=== PATIENT | male | born 1965 | race Caucasian/White ===

== ENCOUNTER 2022-05-07 06:47 | Observation (INO) ==
--- NOTE | 2022-04-14 11:12 | PAT Medication Instructions ---
Medication Instructions Date of Service April 14, 2022 Home Medications aspirin 81 mg tablet,delayed release 81 mg PO QAM fluticasone 250 mcg-salmeterol 50 mcg/dose blistr powdr for inhalation (Advair Diskus) 2 inh inhalation BID omeprazole 40 mg capsule,delayed release 40 mg PO QAM glucosamine sulfate 500 mg tablet (Glucosamine) 500 mg PO BID lisinopril 20 mg-hydrochlorothiazide 25 mg tablet 1 tab PO QAM STOP taking 2 weeks before surgery (or as soon as possible if surgery is within 2 weeks) glucosamine sulfate 500 mg tablet (Glucosamine) 500 mg PO BID DO NOT take the morning of surgery lisinopril 20 mg-hydrochlorothiazide 25 mg tablet 1 tab PO QAM Take morning of surgery With a small sip of water, OTHERWISE NOTHING TO EAT OR DRINK AFTER MIDNIGHT: aspirin 81 mg tablet,delayed release 81 mg PO QAM (continue as normal unless told otherwise by surgeon) fluticasone 250 mcg-salmeterol 50 mcg/dose blistr powdr for inhalation (Advair Diskus) 2 inh inhalation BID omeprazole 40 mg capsule,delayed release 40 mg PO QAM Take evening before surgery fluticasone 250 mcg-salmeterol 50 mcg/dose blistr powdr for inhalation (Advair Diskus) 2 inh inhalation BID Other Notes If you have any questions please call us at [phone] or [phone] or [phone] or [phone]
--- NOTE | 2022-04-18 11:29 | Anesthesiology Consultation ---
Date of Service April 18, 2022 Assessment & Plan (1) Encounter for pre-operative examination: - COVID screening: Per assessment on 04/18: No known COVID-19 positive contacts or current COVID-19 related symptoms. Travel screen negative. Patient vaccinated. At surgeon discretion if preop Covid testing being done. - Outpatient joint assessment: Pt currently scheduled for inpatient pathway. If surgeon requests review for outpatient joint pathway, patient is not recommended candidate for outpatient joint program from anesthesia standpoint. Chart Review Chart Review: Acceptable Risk for Surgery and Patient seen in Pre Admission Testing Teaching & Discussion Pre-Anesthesia Teaching/Discussion Notes: Instructed NPO after midnight before surgery,except medications with 15 cc of water. Medication instructions provided according to the PAT guidelines. History Surgery Operation Date: 05/07/22 09:20 Proposed Procedures p Left Total Knee Arthroplasty - Alex Barragan DO Height/Weight Height: 6 ft 1 in Weight: 137.8 kg Allergies Allergy/AdvReac Type Severity Reaction Status Date / Time No Known Allergies Allergy Unverified 04/11/22 16:05 Medications Home Medications Medication Instructions Recorded Confirmed Last Taken aspirin 81 mg tablet,delayed 81 mg PO QAM 02/25/20 04/11/22 02/25/20 release fluticasone 250 mcg-salmeterol 50 2 inh inhalation BID 02/25/20 04/11/22 02/25/20 mcg/dose blistr powdr for inhalation (Advair Diskus) omeprazole 40 mg capsule,delayed 40 mg PO QAM 02/25/20 04/11/22 02/25/20 release glucosamine sulfate 500 mg tablet 500 mg PO BID 04/11/22 04/11/22 Unknown (Glucosamine) lisinopril 20 1 tab PO QAM 04/11/22 04/11/22 Unknown mg-hydrochlorothiazide 25 mg tablet Past Medical History Medical History Asthma Stable GERD (gastroesophageal reflux disease) HTN (hypertension) Morbid obesity Osteoarthritis Sleep apnea Unable to tolerate CPAP Exercise / Class Metabolic Activity II 4-5 Yardwork/Stairs/Walk up hill (one FS (no CP, no SOB)) Past Family History Family History Other No family history of adverse response to anesthesia Past Surgical History Surgical History History of arthroscopy of right knee History of colonoscopy History of hand surgery Right finger surgery x 2 History of removal of cyst Left arm History of surgery Splenic repair (r/t )injury from fall Past Anesthesia History No Hx of Anesthesia Complications and No Family Hx of Anesthesia Complications History of PONV No Hx of PONV and Hx of Motion Sickness Social History Smoking Status: Former smoker Do You Dip or Chew Tobacco: No Smoking End Date: Quit many years ago Hx Alcohol Use: No Hx Substance Use: No substance use type: does not use Review of Systems Patient denies chest pain, shortness of breath, dyspnea on exertion, fever, chills, cough, wheezing, palpitations. Physical Exam Vital Signs VITALS BP 139/87 P 74 TEMP 98.3 SP02 95%RA RESP 18 PHYSICAL Full cervical extension range of motion. Full TMJ range of motion. TMD 4finger breaths Mallampati Score 3 Dentition: left upper side missing tooth, right lower side chipped tooth Lungs: clear throughout to auscultation Cardiac: regular rate and rhythm, no murmurs noted Spine: normal Carotid arteries: negative bruit Extremities: no edema Lab Results Anesthesia Preop Results Results Anesthesia Widget: WBC 9.43 K/ul (4.8-10.8) 04/18/22 Hgb 15.6 g/dl (14.0-18.0) 04/18/22 Hct 45.4 % (40.1-51.0) 04/18/22 Plt 264 K/uL (130-400) 04/18/22 Na 136 mmol/L (136-145) 04/18/22 K 4.2 mmol/L (3.5-5.1) 04/18/22 Cl 103 mmol/L (98-107) 04/18/22 CO2 27 mmol/L (21-32) 04/18/22 BUN 30 mg/dl (6-23) H 04/18/22 Creat 1.03 mg/dl (0.6-1.4) 04/18/22 Glucose Level 113 mg/dl (70-99(Fasting)) H 04/18/22 PT 10.3 Seconds (9.0-12.0) 04/18/22 PTT 26.1 Seconds (21.0-31.0) 04/18/22 INR 1.0 (0.9-1.1) 04/18/22 HA1c 5.8 % (4.5-5.6) H 04/18/22 Urine Color Yellow 04/18/22 Urine Appearance Clear (Clear) 04/18/22 Urine pH 6.5 (4.5-7.5) 04/18/22 Urine Specific Bow 1.022 (1.000-1.030) 04/18/22 Urine Protein Negative (Negative) 04/18/22 Urine Glucose (UA) Negative (Negative) 04/18/22 Urine Ketones Negative (Negative) 04/18/22 Urine Blood Negative (Negative) 04/18/22 Urine Nitrite Negative (Negative) 04/18/22 Urine Bilirubin Negative (Negative) 04/18/22 Urine Urobilinogen Negative (Negative) 04/18/22 Urine Leukocyte Esterase Negative (Negative) 04/18/22 Blood Type A Positive 04/18/22 Antibody Screen NEGATIVE 04/18/22 Testing Electrocardiogram Date: 04/18/22 Findings: + NSR @ (74) Chest X-Ray Date: 04/18/22 FINDINGS: PA and lateral chest radiographs are compared to chest x-ray and chest CT dated 02/25/2020. The cardiomediastinal silhouette is top normal for projection. The lungs and pleural spaces are clear noting mild bibasilar atelectasis. There is no pneumothorax. The bony thorax appears intact. IMPRESSION: No active disease in the chest. COVID-19 Risk Screen Screening Information COVID-19 Screen Date: 04/18/22 Exposure 21 Days Family/Household +COVID Last 21 Days: No Exposure 10 Days Any COVID Exposure Last 10 Days: No Symptoms Last 10 Days Experienced COVID Sx Last 10 Days: No + COVID 0-90 Days COVID + in Last 0-90 Days: No
--- NOTE | 2022-04-18 15:08 | History & Physical Report ---
Date of Service April 18, 2022 date of surgery: 05/07/22 Procedure: Left Total Knee Arthroplasty Surgeon: Alex Barragan Assessment & Plan (1) Arthritis of knee, left: Plan: Risk and benefits of the procedure discussed in detail with patient, he would like to proceed with left total knee replacement. Plan on overnight stay at the hospital will discharge home with home health physical therapy. Placed on aspirin 81 mg twice a day for 1 month postop. We will follow-up in the office 2 weeks postoperatively sooner if he is having any problems. We will need medical clearance prior to the surgery. He otherwise has no other questions or concerns The risks and benefits have been discussed including, but not limited to, risk of infection, nerve injury, stiffness, loss of motion, failure to improve, etc. Reasonable outcomes and options of treatment were discussed. An explanation of appropriate alternatives to the procedure that may be advantageous were discussed and their risks and benefits, as well as the risks and benefits of not proceeding with treatment. I offered to answer any additional inquiries concerning the treatment involved. All the patient's questions were answered. The patient is agreeable, understanding of the treatment plan and alternatives, and wishes to proceed with the treatment plan. History of Present Illness Chief Complaint: left knee pain Primary Care Provider: Emiliana Massey DO Mr. Owens is a pleasant 56-year-old male who presents today for preop evaluation prior to his left total knee replacement. He states that he has been having pain in his knee for many years now which is gradually worsened and is now affecting his daily activities including walking standing using stairs. He is tried oral anti-inflammatories and Tylenol without relief, he states he has undergone previous corticosteroid and viscosupplementation injections without any relief. He denies any previous surgeries. He rates his current pain as a 7 out of 10. At this point time is failed conservative measures and would like to proceed with a left total knee replacement Allergies Allergy/AdvReac Type Severity Reaction Status Date / Time No Known Allergies Allergy Unverified 04/11/22 16:05 Home Medications Medication Instructions Recorded Confirmed Type aspirin 81 mg tablet,delayed 81 mg PO QAM 02/25/20 04/11/22 History release fluticasone 250 mcg-salmeterol 50 2 inh inhalation BID 02/25/20 04/11/22 History mcg/dose blistr powdr for inhalation (Advair Diskus) omeprazole 40 mg capsule,delayed 40 mg PO QAM 02/25/20 04/11/22 History release glucosamine sulfate 500 mg tablet 500 mg PO BID 04/11/22 04/11/22 History (Glucosamine) lisinopril 20 1 tab PO QAM 04/11/22 04/11/22 History mg-hydrochlorothiazide 25 mg tablet Past Med/Surg History Medical History Asthma Stable GERD (gastroesophageal reflux disease) HTN (hypertension) Morbid obesity Osteoarthritis Sleep apnea Unable to tolerate CPAP Surgical History History of arthroscopy of right knee History of colonoscopy History of hand surgery Right finger surgery x 2 History of removal of cyst Left arm History of surgery Splenic repair (r/t )injury from fall Family History Other No family history of adverse response to anesthesia Social History Smoking Status: Former smoker Second Hand Exposure: No; Hx Alcohol Use: No Hx Substance Use: No Preferred Language: Ukrainian Communication Ability: Effective Mill Feeder Required: No Beliefs That Will Affect Care: None Current Living Situation: Spouse Feels Safe at Home: Yes Assistive Devices: None Review of Systems Review of Systems: All systems reviewed & are unremarkable except as noted in HPI & below Constitutional: no fever, no chills and no sweats Respiratory: no cough and no dyspnea Cardiovascular: no chest pain, no dyspnea and no orthopnea Gastrointestinal: no abdominal pain, no nausea and no vomiting Musculoskeletal: as per Subjective / HPI Physical Exam Physical Exam: HT: 6ft 1in WT: 137.8kg Constitutional: WD/WN, vitals as above no acute distress Respiratory: normal respiratory effort, lungs clear to auscultation no respiratory distress, no labored breathing and does not use accessory muscles Cardiovascular: RRR, no murmur, no edema Gastrointestinal (Abdomen): normal bowel sounds, soft, nontender, no hepatosplenomegaly Musculoskeletal: Knee: + knee abnormal to inspection (LEFT KNEE), + effusion (+1 effusion), + limited ROM of knee (ROM 0/3/110), + knee ROM with crepitation, + joint line tenderness (medial joint line) and + Aquilino's sign positive; no deformity, no skin erythema, no ecchymosis, no valgus laxity, no varus laxity, anterior drawer test negative, Sapphire's sign negative and pivot shift test negative Results & Data Results & Data ([facility]) Diagnostic Findings Left Knee X-ray: left knee series confirm advanced degenerative changes to the left knee, greatest medial compartments and patellofemoral joint, showing joint space narrowing, osteophyte formation and subchondral sclerosis. no acute bony pathology noted.
[~2022-05-07 06:47] MED LIST: ACETAMINOPHEN 500 MG TAB PO SCH; BUPIVACAINE 0.25% 30 ML VIAL ONE; BUPIVACAINE 0.5 % 5 MG/1 ML PF 10ML VIAL ONE; CeleBREX 200 MG CAP PO SCH; FAMOTIDINE 20 MG TAB PO SCH; GABAPENTIN 600 MG DOSE PO SCH; LR 500ML BOLUS, THEN 15ML/HR IV SCH; METOCLOPRAMIDE HCL 10 MG TABLET PO SCH; ROPIVACAINE 0.5% HCL/PF 150 MG, BUPIVACAINE 0.75% MPF 20 ML, EPINEPHrine 30MG/30ML (OR ... INSTIL SCH; TRANEXAMIC ACID 1,000 MG **IV Intra-op IV SCH; TRANEXAMIC ACID 1,000 MG **IV Pre-op IV SCH; dexAMETHasone 4 MG TAB PO SCH
[2022-05-07] MEDS ORDERED: LIDOCAINE 2% 20 MG/ML 5 ML SYR IV ONE (07:36)
[2022-05-07] MEDS ORDERED: MIDAZOLAM HCL 1 MG/ML 2ML VIAL ONE (07:36)
[2022-05-07] MEDS ORDERED: PROPOFOL IV EMULSION 10 MG/ML 20 ML VIAL IV ONE (07:36)
--- NOTE | 2022-05-07 08:35 | History & Physical Bridge Note ---
Date of Service May 07, 2022 History & Physical Bridge Note I have examined the patient, reviewed the History & Physical and in the interval since the performance of the History & Physical I have noted the following changes of clinical significance: no changes noted
[2022-05-07] MEDS ORDERED: ATROPINE SULFATE 0.1 MG/ML 10ML SYR IV PRN (08:41)
[2022-05-07] MEDS ORDERED: ONDANSETRON INJ 2 MG/ML 2 ML VIAL IV PRN ×2 (08:41→12:43)
[2022-05-07] MEDS ORDERED: fentaNYL citrate 100 MCG/2 ML VIAL IV PRN (08:41)
[2022-05-07] MEDS ORDERED: ePHEDrine sulfate 50 MG/ML AMP IV PRN (08:41)
[2022-05-07] MEDS ORDERED: ORTHO JOINT ANESTHETIC ONE (09:12)
[2022-05-07] MEDS ORDERED: ONDANSETRON INJ 2 MG/ML 2 ML VIAL ONE (10:55)
--- NOTE | 2022-05-07 11:17 | Operative Report ---
Post Operative Report Pre & Post Diagnosis Operation Date: 05/07/22 09:20 Pre-Op Diagnosis: Osteoarthritis Left knee Post-Op Diagnosis: Osteoarthritis Left knee I identified the patient and participated in the time-out.: Yes Procedure Operation Date: 05/07/22 09:20 Actual Procedures p Left Total Knee Arthroplasty(Left) - Alex Barragan DO Surgeon Alex Barragan DO Estimated Blood Loss 5 I attest to the content of the Intraoperative Record and any orders documented therein. Any exceptions are noted below.
--- NOTE | 2022-05-07 11:19 | Operative Report ---
Post Operative Report Pre & Post Diagnosis Operation Date: 05/07/22 09:20 Pre-Op Diagnosis: Osteoarthritis Left knee Post-Op Diagnosis: Osteoarthritis Left knee I identified the patient and participated in the time-out.: Yes Procedure Operation Date: 05/07/22 09:20 Actual Procedures p Left Total Knee Arthroplasty(Left) utilizing Cruz [employer] Nephew journey 2 patient Max total knee arthroplasty size femur 8 tibia 8 Poly 12 patella 32 heath- Alex Barragan DO Surgeon Alex Barragan DO Litigation Assistant CRISPIN Mark Estimated Blood Loss 5 Findings Consistent with Post-Op Diagnosis Patient presents with severe end-stage DJD of the left knee with severe medial compartment chondrosis patellofemoral chondrosis eburnated [id number] marginal osteophytes subchondral sclerosis and cystic changes with a large effusion Specimens Bone and cartilage Drains Medium bore Hemovac Anesthesia Type MAC Spinal Regional Complications none Disposition Accompanied Patient To Recovery: No Disposition: Recovery Room Indications Patient presents with severe end-stage DJD left knee nonresponse to conservative management getting physical therapy anti-inflammatories relative rest activity modification corticosteroid injection viscosupplementation the above intraoperative findings were noted Description of Procedure After proper prepping and draping of the left lower extremity anterior midline incision was made over the region of the extensor extensor mechanism after meticulous hemostasis was obtained and maintained in subcutaneous tissues a medial parapatellar incision was made The patella was subluxed lateralward the medial lateral gutter were cleaned from any hypertrophic synovitis and scar tissue of the distal femoral block was placed and the distal femoral osteotomy cut was made subsequently the chamfers anterior and posterior osteotomy cuts were made utilizing the 4-in-1 block the tibia was subsequently subluxed anteriorward medial and ateral meniscal remnants were excised in their entirety remnants of the anterior and posterior cruciate ligaments were excised in their entirety excellent exposure of the proximal tibia was obtained the tibial osteotomy guide was placed on the proximal tibial osteotomy cut was made once again the knee was irrigated with copious amounts of sterile saline solution the patella was subsequently everted lateralward thickened scar tissue around the patella was removed the patella was subsequently cut utilizing a freehand techni que and was drilled prepared for final preparation and placement of patella socially flexion-extension gaps were checked and the equal and symmetric trials were placed to the appropriate femoral and tibial trials with poly-spacer being placed for equal flexion and extension gaps and full range of motion including extension to 0 and flexion to 140 the trial components after having been taken to recovery range of motion was subsequently removed meticulous hemostasis was obtained and maintained subsequently a knee block injection of joint cocktail including ropivacaine 0.5% 150 mg. Bupivacaine 0.5% epinephrine 1-200,030 mL's toradol 30 mg dexamethasone 4 mg ketamine 10 mg clonidine 100 micrograms normal saline solution 30 mg was infiltrated into the soft tissues of the posterior knee medial lateral gutters and periosteal synovium special attention was paid to protect neurovascular structures at all times subsequently trial components having been removed the knee was irrigated with sterile saline solution. debris was removed the proximal tibia was subsequently prepared and was made ready for the placement of the tibial component tibial component was also cemented and tamped into position the femoral component was subsequently placed and cemented in the position the patellar component was subsequently cemented in position because hemostasis once again obtained and maintained wound having been thoroughly irrigated with debridement and debridement lavage was performed as well as a medial parapatellar incision closed with #1 Vicryl in interrupted fashion subcutaneous was closed with #2 Vicryl skin was closed with skin clips. PA-C was necessary for prepping and drapping as well as wound closure of deep fascia Sub cutaneous tissue and skin and was necessary for the case. A sterile compressive dressing was placed patient was taken to recovery in stable condition of report dictated by Yung I attest to the content of the Intraoperative Record and any orders documented therein. Any exceptions are noted below.Due to the complex nature of the procedure, the entire surgery was performed with the operational assistance of CRISPIN Mark. The fish hatchery assistant, under direct supervision, was involved in the actual performance of all aspects of the surgical procedure including hemostasis, tissue retraction and incision, instrument management, patient positioning, and wound closure. I attest to the content of the Intraoperative Record and any orders documented therein. Any exceptions are noted below.
--- NOTE | 2022-05-07 12:20 | XRay Report ---
LEFT KNEE 2 VIEWS History: Left total knee arthroplasty. Degenerative arthritis. Postop. FINDINGS: The patient is status post a left total knee arthroplasty. The hardware is intact. No fract ure or dislocation. Surgical drains are in place. IMPRESSION: Left total knee arthroplasty. No evidence for hardware complication. ACT 112: Negative or not required by law. Electronically signed by: Dionte Last M.D. 05/07/2022 12:18 PM
[2022-05-07] MEDS ORDERED: METOCLOPRAMIDE HCL INJ 5 MG/ML 2 ML VIAL IV PRN (12:43)
[2022-05-07] MEDS ORDERED: oxyCODONE HCL IR 5 MG TAB (IMMEDIATE RELEASE) PO PRN (12:43)
[2022-05-07] MEDS ORDERED: NALOXONE HCL 0.4 MG/1 ML VIAL/CARP IV PRN (12:43)
[2022-05-07] MEDS ORDERED: HYDROmorphone INJ 1 MG/ML SYRINGE IV PRN (12:43)
[2022-05-07] MEDS ORDERED: MAGNESIUM HYDROXIDE SUSP 30 ML UDC PO PRN (12:43)
[2022-05-07] MEDS ORDERED: diphenhydrAMINE Capsule 25 MG CAP PO PRN (12:43)
[2022-05-07] MEDS ORDERED: SODIUM CHLORIDE 0.9% 1000ML 1,000 ML IV SCH (12:43)
[2022-05-07] MEDS ORDERED: bisacodyL 10 MG SUPP PR PRN (12:43)
[2022-05-07] MEDS: ACETAMINOPHEN 500 MG TAB PO SCH ×2 (14:22→21:14)
[2022-05-07] MEDS: KETOROLAC 30 MG/ML VIAL IV SCH ×3 (15:32→19:58)
--- NOTE | 2022-05-07 16:58 | Anesthesiology Progress Note ---
Date of Service May 07, 2022 Anesthesia Post Procedure Vital Signs Vital Signs: Temp Pulse Pulse Resp BP BP Pulse Ox 05/07/22 15:27 36.5 C 72 17 122/78 96 05/07/22 14:09 36.5 C 69 17 124/79 95 05/07/22 13:30 36.4 C L 86 20 123/73 94 05/07/22 13:10 83 20 127/73 95 05/07/22 12:55 82 18 118/82 95 05/07/22 12:40 80 14 127/78 95 05/07/22 12:30 36.3 C L 74 16 115/74 95 05/07/22 12:20 82 20 113/85 95 05/07/22 12:10 75 14 128/66 96 05/07/22 12:00 74 15 114/68 99 05/07/22 11:52 36.2 C L 86 18 122/54 L 99 05/07/22 07:25 36.8 C 71 18 162/86 H 98 O2 Del Method O2 Flow Rate 05/07/22 15:27 Room Air 05/07/22 14:09 Room Air 05/07/22 13:30 Room Air 05/07/22 13:10 Room Air 05/07/22 12:55 Room Air 05/07/22 12:40 Room Air 05/07/22 12:30 Room Air 05/07/22 12:20 Room Air 05/07/22 12:10 Room Air 05/07/22 12:00 Oxymask 4 05/07/22 11:52 Oxymask 6 05/07/22 07:25 Room Air Transfer of Care Handoff Completed per policy Notes Mental Status: alert / awake / arousable and participated in evaluation Patient Amnestic to Procedure: Yes Nausea / Vomiting: adequately controlled Pain: adequately controlled Airway Patency, RR, SpO2: stable & adequate BP & HR: stable & adequate Hydration State: stable & adequate Neuraxial Anesthesia: was administered and sensory block is resolving Anesthetic Complications: no major complications apparent and Pt Satisfied with anesthetic care
[2022-05-07] MEDS: ceFAZolin 2000MG 2,000 MG/15 ML SYR IV SCH (18:42)
[2022-05-07] MEDS ORDERED: SENNA 8.6 MG TAB PO SCH (21:00)
[2022-05-07] MEDS: DOCUSATE SODIUM 100 MG CAP PO SCH (21:14)
[2022-05-07] MEDS: ASPIRIN 81 MG ECTAB PO SCH (21:14)
[2022-05-08] MEDS: KETOROLAC 30 MG/ML VIAL IV SCH ×2 (01:26→05:40)
[2022-05-08] MEDS: ceFAZolin 2000MG 2,000 MG/15 ML SYR IV SCH (01:26)
[2022-05-08] MEDS: ACETAMINOPHEN 500 MG TAB PO SCH ×2 (05:40→11:57)
[2022-05-08 06:47] LABS: Hematocrit (blood only) 38.7 % (42.0-52.0); Hemoglobin 13.5 g/dl (14.0-18.0); Mean Corpuscular Hemoglobin 31.3 pg (25.0-34.0); Mean Corpuscular Hgb Conc 34.9 g/dL (32.0-36.0); Mean Corpuscular Volume 89.8 fL (80.0-100.0); Mean Platelet Volume 9.3 fL (9.4-12.4); Platelet Count 238 K/uL (130-400); RDW Coefficient of Variation 11.4 % (11.5-14.5); RDW Standard Deviation 37.5 fL (36.4-46.3); Red Blood Count 4.31 M/uL (4.70-6.10); White Blood Count 17.24 K/ul (4.8-10.8)
--- NOTE | 2022-05-08 08:01 | Orthopedic Progress Note ---
Date of Service May 08, 2022 Assessment & Plan (1) Arthritis of knee, left: Plan: Postop day 1 status post left total knee arthroplasty. PT/OT protocols. Weightbearing as tolerated. DVT prophylaxis-aspirin p.o. twice daily, JOSEPH Negron. Pain management is written. Labs pending. Discharge planning patient is planning for outpatient PT upon discharge. Plan for possible discharge today pending progression with physical therapy and pain control. Admission and Anticipated Discharge Date Admission Date: May 07, 2022 Subjective POD 1 Patient lying in bed awake and alert. Patient did not sleep well last night but states pain was controlled. No other complaints at this time. Physical Exam Physical Exam: Dressings are clean, dry, and intact. Hemovac drain was removed earlier this morning. Calves are soft nontender. Neurovascular intact. Toes are mobile. He has been dorsiflexion and plantarflexion of the left foot. Results & Data ([facility]) Vital Signs (Past 12 Hours) Vital Signs Temp Pulse Resp BP Pulse Ox O2 Del Method 05/08/22 07:55 36.7 C 57 L 17 135/77 98 Room Air 05/08/22 03:11 37 C 61 18 116/69 96 Room Air 05/07/22 22:22 36.7 C 65 20 115/71 97 Room Air
[2022-05-08 08:14] LABS: Calcium 8.4 mg/dl (8.5-10.1); Creatinine Clr Calc Pharmacy 120.2 ml/min; Est GFR (African American) 97.1 ml/min; Est GFR (Non-African American) 83.8 ml/min
[2022-05-08] MEDS ORDERED: MULTIVITAMIN TAB PO SCH (09:00)
[2022-05-08] MEDS ORDERED: FLUTICASONE/VILANTEROL 200/25MCG 14 PUFFS/INHALER INH SCH (09:00)
[2022-05-08] MEDS ORDERED: LISINOPRIL/HCTZ 20/25MG 1 TAB PO SCH (09:00)
[2022-05-08] MEDS ORDERED: CeleBREX 200 MG CAP PO SCH (09:00)
[2022-05-08] MEDS ORDERED: ATORVASTATIN 20 MG TAB PO SCH (09:00)
[2022-05-08] MEDS: ASPIRIN 81 MG ECTAB PO SCH (09:45)
[2022-05-08] MEDS: DOCUSATE SODIUM 100 MG CAP PO SCH (09:52)
--- NOTE | 2022-05-08 15:16 | Discharge Summary ---
Date of Service date of discharge: May 08, 2022 date of admission: 05/07/22 Admission HPI Per Admitting Provider Mr. Owens is a pleasant 56-year-old male who presents today for preop evaluation prior to his left total knee replacement. He states that he has been having pain in his knee for many years now which is gradually worsened and is now affecting his daily activities including walking standing using stairs. He is tried oral anti-inflammatories and Tylenol without relief, he states he has undergone previous corticosteroid and viscosupplementation injections without any relief. He denies any previous surgeries. He rates his current pain as a 7 out of 10. At this point time is failed conservative measures and would like to proceed with a left total knee replacement Principal Diagnosis left knee Discharge Exam Musculoskeletal left knee: NVDI, calf SNT, negative niharika sign. DP palpable, able to wiggle toes/ankle movement without difficulty. PAULINE dressing clean dry and intact. expected post-operative bruising noted. Discharge Data Allergies Allergy/AdvReac Type Severity Reaction Status Date / Time No Known Allergies Allergy Verified 05/07/22 06:59 Procedures Performed Operation Date: 05/07/22 09:20 Actual Procedures p Left Total Knee Arthroplasty(Left) - Alex Barragan DO Ordered Studies 05/07/22 05:00 US - OR guided needle placemen Routine Hospital Course (1) Arthritis of knee, left: Postop day 1 status post left total knee arthroplasty. PT/OT protocols. Weightbearing as tolerated. DVT prophylaxis-aspirin p.o. twice daily, SCDs, JOSEPH hose. Pain management is written. Labs pending. Discharge planning patient is planning for outpatient PT upon discharge. Plan for possible discharge today pending progression with physical therapy and pain control. Total Time Total Time Spent Total Time Spent (In Minutes): 20 Discharge Plan Discharge Items Patient Disposition: Home - Self-Care Reason For Visit: POST TKA Discharge Diagnosis: LEFT TOTAL KNEE REPLACEMENT Activity: Per Instructions section Weightbearing Comment: WBAT WITH WALKER Non-emergency contact: Surgeon Call non-emergency contact if: you have any medication questions, your tempe rature is above 101, your wound has increased redness, your wound has increased drainage and your wound pain has increased Follow-up/Referrals: Alex Barragan DO [Surgeon] - (Follow-up with Dr. Barragan or his PA in 2 weeks from the day of your surgery for your first postoperative visit) Tati Peng MD [Primary Care Provider] - Diet: Regular Addtl Attending Provider Instructions: ACTIVITY RECOMMENDATIONS: SELF CARE INSTRUCTIONS AFTER TOTAL KNEE REPLACEMENT A. You may need to continue a physical therapy program after discharge from the hospital. There are several options available to you. Your doctor will assist you in selecting the best one for you. 1. An out-patient facility 2 to 3 times a week for therapy or home therapy. 2. Continue working on all exercises taught to you in the hospital. Your goals should be to increase bending of your knee to 90 degrees and beyond and to fully straighten your knee. B. You may progress at your own pace from walking with a walker or crutches to a cane; then to no assistive devices. C. Make walking a part of your daily routine. Be up as much as comfortable with rest periods throughout the day. Rest with leg elevation is very important. Use the ice wrap frequently for the first 3-4 weeks. D. There are no restrictions on activities. You may ride in a car, shop, participate in manager industrial and all social activities. E. Wear the long elastic stockings (JOSEPH hose) 20 hours a day for 2 weeks after surgery. They can be removed several times a day for laundering and for a bath. F. You may shower, no tub baths until cleared by your doctor. SPECIAL CARE INSTRUCTIONS: VERY IMPORTANT TO READ AND REVIEW A. There are a few signs you need to watch for after you are home. Call [facility] if you notice any of the followin. Increased severe knee pain. Some pain is expected especially when you exercise. 2. Increased swelling in your leg or knee; pain or swelling of the calf muscle in either lower leg. 3. Any fluid drainage from the incision. 4. Shortness of breath or chest pain. B. Please call [facility] at if you have any concerns or questions about your operation or recovery. The doctor or his nurse will return your call promptly. C. You must take antibiotics before dental work, bladder, bowel or other surgery. Your doctor will provide you with a permanent care to carry describing this precaution. IMPORTANT: * REMEMBER TO TAKE ASPIRIN, 81 MG, TWICE DAILY FOR 4 WEEKS UNLESS OTHERWISE DIRECTED. THIS IS YOUR BLOOD THINNER. * HIGH RISK PATIENTS MAY BE PRESCRIBED A STRONGER BLOOD THINNER. THIS WILL BE PROVIDED AT DISCHARGE. * CALL IF INCREASED PAIN, REDNESS, DRAINAGE OR FEVER GREATER THAT 101. * WEAR JOSEPH HOSE 20 HOURS PER DAY FOR 2 WEEKS. DRESSING INSTRUCTIONS * PAULINE Dressing- This is a large suction dressing covering your incision. This will help pull any excess drainage from the wound and allow your incision to heal properly. You may shower with this if you can keep the unit outside of the shower. If any bleeding or leakage is noted please call your doctor's office. This will remain on your incision for 7 days and then should be removed. This can be done yourself or by the home nursing staff if applicable. The entire unit is disposable once removed. Once removed, keep incision clean and dry. If redness or drainage is noted, please call your surgeon. ONCE PAULINE IS REMOVED, FOLLOW THESE INSTRUCTIONS: DERMABOND Prineo- This is a mesh tape dressing that is covered with glue. It should remain in place until the incision is properly healed, usually 10-14 days. This dressing is designed to naturally slough off. You may trim the excess mesh tape as it peels off. Incision may be briefly wet in a shower. Dry immediately by blotting with a clean, dry towel. Do not bath or swim until instructed by your doctor. Do not scratch, rub, or pick at the dressing. Do not apply any topical ointments or lotions until dressing is completely removed and/or instructed by your doctor. There may be a small piece of suture material at one end of your incision. Do not pull or trim this. If it is bothersome or catching on clothing, you may cover it with a band-aid. IF INCISION IS LEAKING THROUGH DRESSING, CALL THE OFFICE . FOLLOW UP VISIT: If appointment is not already scheduled: Please call [facility] to make a follow-up appointment for 2 weeks after your surgery at . Stand-Alone Forms: My [employer], Smoking Cessation Medications and DC Order Prescriptions: New acetaminophen [Tylenol Extra Strength] 500 mg Tablet 1,000 mg PO Q8 14 Days Qty: 84 0RF aspirin 81 mg Tablet,Delayed Release (Dr/Ec) 81 mg PO BID 30 Days Qty: 60 0RF celecoxib [Celebrex] 200 mg Capsule 200 mg PO BID 14 Days Qty: 28 0RF polyethylene glycol 3350 [Miralax] 17 gram powder in packet 17 g PO DAILY PRN (Reason: constipation) Qty: 5 0RF cefadroxil 500 mg capsule 500 mg PO BID Qty: 28 1RF oxycodone 5 mg tablet 5 mg PO Q4H MDD 6 PRN (Reason: pain) Qty: 30 0RF Continued fluticasone propion-salmeterol [Advair Diskus] 250-50 mcg/dose blister with device 2 inh INHALATION BID omeprazole 40 mg capsule,delayed release(DR/EC) 40 mg PO QAM lisinopril-hydrochlorothiazide 20-25 mg Tablet 1 tab PO QAM atorvastatin 20 mg Tablet 20 mg PO DAILY Discontinued aspirin 81 mg Tablet,Delayed Release (Dr/Ec) 81 mg PO QAM glucosamine sulfate [Glucosamine] 500 mg Tablet 500 mg PO BID Rx Instructions: administer with a meal Discharge Orders: Discharge Order (Routine); Ordered 05/08/22 Ordered By: Hill Sheppard/Other Patient Handouts: RICE, Knee Replacement Recovery at Home Admission Data Admit Date/Time: 05/07/22 12:07 Attending Provider: Alex Barragan Admit Provider: Alex Barragan Primary Care Provider: Tati Peng Other Interventions: Discharge Summary Assessment (RN) Last Done: 05/08/22 12:29
== END 2022-05-08 13:23 | disposition home or self-care (01) ==
LOC: ASU 06:47 → PACUINP 06:47 → 3E 13:31